=== PATIENT | male | born 1985 | race American Indian/Alaskan Native ===

== ENCOUNTER 2017-02-02 21:12 | Emergency (ER) | payer SELFPAY ==
[2017-02-02] MEDS ORDERED: TYLENOL PO ONE (22:56)
--- NOTE | 2017-02-02 23:59 | XRay Report ---
FINAL REPORT EXAM: XR HAND 2V RT HISTORY: righ hand injury TECHNIQUE: Right hand two views 3 images PRIORS: None. FINDINGS: Bone mineralization appears within normal limits. No acute fracture or subluxation is identified. No gross abnormality is seen in the soft tissues. IMPRESSION: 1. No acute fracture is identified.If symptoms persist, consider repeat study in 10-14 days to assess for a currently radiographically occult fracture.
[2017-02-03] MEDS ORDERED: MOTRIN PO ONE (02:32)
--- NOTE | 2017-02-03 02:40 | Emergency Department Report ---
ED Upper Extremity Inj HPI - General Chief Complaint: Extremity Injury, Upper Stated Complaint: RT WRIST PAIN W/LUMP Time Seen by Provider: 02/03/17 02:06 Source: patient Mode of arrival: Ambulatory Limitations: No Limitations - History of Present Illness Initial Comments: This is a 32-year-old male that presents to the ED complaining of right hand pain status post moving boxes 2 days ago. Patient stated has a moving boxes 2 days ago and after moving boxes and that night feeling pain that is aching with a level of a 10 out of 10. Patient denies any trauma to area. Denies any numbness, tingling, joint swelling, joint redness, decreased range of motion, fall, chest pain, shortness of breath, stiff neck, nausea or vomiting. Patient denies any allergies. Denies Past medical history. MD Complaint: Injury to:: left, hand -: Gradual, days(s) (2) Other Extremity Injury: Hand: Right Other Injuries: none Place: home Severity scale (0 -10): 10 Improves With: none Worsens With: none Associated Symptoms: denies other symptoms. denies: weakness, numbness, neck pain, suspects foreign body, nausea/vomiting, heard/felt popping sensat - Related Data Previous Rx's Medication Instructions Recorded Last Taken Type Cyclobenzaprine [Flexeril] 10 mg PO TID PRN #15 tablet 06/01/16 Unknown Rx Ibuprofen [Motrin 800 MG tab] 800 mg PO Q8HR PRN #25 tablet 06/01/16 Unknown Rx Ibuprofen [Motrin 600 MG tab] 600 mg PO Q8H PRN #20 tablet 02/03/17 Unknown Rx Allergies Allergy/AdvReac Type Severity Reaction Status Date / Time No Known Allergies Allergy Unverified 06/01/16 00:39 ED Review of Systems ROS: Stated complaint: RT WRIST PAIN W/LUMP Other details as noted in HPI Constitutional: denies: chills, fever Eyes: denies: eye pain, eye discharge, vision change ENT: denies: ear pain, throat pain Respiratory: denies: cough, shortness of breath, wheezing Cardiovascular: denies: chest pain, palpitations Endocrine: no symptoms reported Gastrointestinal: denies: abdominal pain, nausea, diarrhea Genitourinary: denies: urgency, dysuria Musculoskeletal: denies: back pain, joint swelling, arthralgia Skin: denies: rash, lesions Neurological: denies: headache, weakness, paresthesias Psychiatric: denies: anxiety, depression Hematological/Lymphatic: denies: easy bleeding, easy bruising ED Past Medical Hx - Past Medical History Previous Medical History?: No - Surgical History Past Surgical History?: No - Social History Smoking Status: Former Smoker Substance Use Type: Alcohol, Marijuana - Medications Home Medications: Home Medications Medication Instructions Recorded Confirmed Last Taken Type Cyclobenzaprine [Flexeril] 10 mg PO TID PRN #15 tablet 06/01/16 Unknown Rx Ibuprofen [Motrin 800 MG tab] 800 mg PO Q8HR PRN #25 tablet 06/01/16 Unknown Rx Ibuprofen [Motrin 600 MG tab] 600 mg PO Q8H PRN #20 tablet 02/03/17 Unknown Rx ED Physical Exam - General Limitations: No Limitations General appearance: alert, in no apparent distress - Head Head exam: Present: atraumatic, normocephalic, normal inspection - Eye Eye exam: Present: normal appearance, PERRL, EOMI. Absent: scleral icterus, conjunctival injection, nystagmus, periorbital swelling, periorbital tenderness Pupils: Present: normal accommodation - ENT ENT exam: Present: normal exam, normal orophraynx, mucous membranes moist, TM's normal bilaterally, normal external ear exam - Neck Neck exam: Present: normal inspection, full ROM. Absent: tenderness, meningismus, lymphadenopathy, thyromegaly - Respiratory Respiratory exam: Present: normal lung sounds bilaterally. Absent: respiratory distress, wheezes, rales, rhonchi, stridor, chest wall tenderness, accessory muscle use, decreased breath sounds, prolonged expiratory - Cardiovascular Cardiovascular Exam: Present: regular rate, normal rhythm, normal heart sounds. Absent: bradycardia, tachycardia, irregular rhythm, systolic murmur, diastolic murmur, rubs, gallop - GI/Abdominal GI/Abdominal exam: Present: soft, normal bowel sounds. Absent: distended, tenderness, guarding, rebound, rigid - Rectal Rectal exam: Present: deferred - Extremities Exam Extremities exam: Present: normal inspection, full ROM, normal capillary refill. Absent: tenderness, pedal edema, joint swelling, calf tenderness - Expanded Upper Extremity Exam Right General: Present: normal inspection Shoulder Exam: Present: normal inspection, full ROM. Absent: tenderness, swelling, abrasion, laceration, ecchymosis, deformity, crepidus, dislocation, erythema, tenderness over AC joint Upper Arm exam: Present: normal inspection, full ROM. Absent: tenderness, swelling, abrasion, laceration, ecchymosis, deformity, crepidus, dislocation, erythema Elbow exam: Present: normal inspection, full ROM. Absent: tenderness, swelling , abrasion, laceration, ecchymosis, deformity, crepidus, dislocation, erythema, effusion, pain w/ pronation/supination, tenderness over radial head Forearm Wrist exam: Present: normal inspection, full ROM. Absent: tenderness, swelling, abrasion, laceration, ecchymosis, deformity, crepidus, dislocation, erythema, tenderness over anatomical snuff box, pain with axial thumb loading Hand Wrist exam: Present: normal inspection, full ROM. Absent: tenderness, swelling, abrasion, laceration, ecchymosis, deformity, crepidus, dislocation, erythema, amputation, nail avulsion, subungual hematoma Neuro motor exam: Present: wrist extension intact, thumb opposition intact, thumb IP flexion intact, thumb adduction intact, fingers 2-5 abduction intact Neurosensory exam: Present: 2-point discrimination, radial nerve intact, ulnar nerve intact, median nerve intact Vascular: Present: vascular compromise, normal capillary refill, radial pulse, brachial pulse, ulnar pulse - Back Exam Back exam: Present: normal inspection, full ROM. Absent: tenderness, CVA tenderness (R), CVA tenderness (L), muscle spasm, paraspinal tenderness, vertebral tenderness, rash noted - Neurological Exam Neurological exam: Present: alert, oriented X3, CN II-XII intact, normal gait, reflexes normal - Psychiatric Psychiatric exam: Present: normal affect, normal mood - Skin Skin exam: Present: warm, dry, intact, normal color. Absent: rash ED Course Vital Signs 02/02/17 02/02/17 22:50 23:02 Temperature 98.9 F Pulse Rate 59 L Respiratory 18 Rate Blood Pressure 123/82 O2 Sat by Pulse 99 Oximetry - Reevaluation(s) Reevaluation #1: 02/03/17 02:49 Patient is able to talk in full sentence without signs of distress noted. ED Medical Decision Making - Medical Decision Making ED course; this is a 31-year-old male that presents with right hand strain. 1- patient was examined by me. X-ray has been obtained a right hand. Dictated by . Impression; no acute fracture is identified. If symptoms persist , consider repeat study attempts 14 days to assess for currently radiographically occult fracture. I notified the patient of x-ray findings the patient stated he will follow up with orthopedic doctor in 3-5 days with further evaluation of possible hidden fracture 2- patient received ibuprofen in the ED. 3- wrist immobilizer has been applied and patient was instructed to follow-up with orthopedic doctor in 5 days or if symptoms such as numbness, tingling, pale , cool to touch, fever, chills, chest pain or shortness of breath returns and emergency service was possible. 4- at time time of discharge, the patient does not seem toxic or ill in appearance. No acute signs of distress noted. Patient agrees to discharge treatment plan of care. No further questions noted by the patient. Critical care attestation.: If time is entered above; I have spent that time in minutes in the direct care of this critically ill patient, excluding procedure time. ED Disposition Clinical Impression: Hand strain Qualifiers: Encounter type: initial encounter Laterality: right Qualified Code(s): S66.911A - Strain of unspecified muscle, fascia and tendon at wrist and hand level, right hand, initial encounter Disposition: - TO HOME OR SELFCARE Is pt being admited?: No Does the pt Need Aspirin: No Condition: Stable Instructions: Ibuprofen (By mouth), Hand Sprain (ED) Additional Instructions: follow-up with orthopedic doctor in 3-5 days or if symptoms such as numbness, tingling, pale, cool to touch, fever, chills, chest pain or shortness of breath returns and emergency service was possible. Take ibuprofen as prescribed as needed for pain. Prescriptions: Ibuprofen [Motrin 600 MG tab] 600 mg PO Q8H PRN #20 tablet PRN Reason: Pain Referrals: PRIMARY CAREMD [Primary Care Provider] - 3-5 Days MASTER REN MD [Staff Physician] - 3-5 Days [facility] [Outside] - 3-5 Days [facility] [Outside] - 3-5 Days Forms: Work/School Release Form(ED)
[2017-02-03 03:03] VITALS: BP 121/76
== END 2017-02-03 03:07 | disposition home or self-care (01) ==
LOC: ED 21:12
DX: S66.911A Strain of unspecified muscle, fascia and tendon at wrist and hand level, right hand, initial encounter (principal); F12.10 Cannabis abuse, uncomplicated; Z87.891 Personal history of nicotine dependence; X50.0XXA Overexertion from strenuous movement or load, initial encounter; Y93.89 Activity, other specified; Y92.89 Other specified places as the place of occurrence of the external cause; Y99.8 Other external cause status
CPT/HCPCS: 99283

== ENCOUNTER 2018-02-12 09:34 | Emergency (ER) | payer OTHER ==
[2018-02-12 09:53] VITALS: BP 119/63
[2018-02-12] MEDS ORDERED: MOTRIN PO ONE (10:19)
--- NOTE | 2018-02-12 10:22 | Emergency Department Report ---
- General Chief Complaint: Upper Respiratory Infection Stated Complaint: CHEST/HEAD PAIN/NUMBNESS Time Seen by Provider: 02/12/18 10:14 Source: patient Mode of arrival: Ambulatory Limitations: No Limitations - History of Present Illness MD Complaint: cough, sore throat, nasal congestion Severity: moderate Quality: sharp Improves With: NSAID Associated Symptoms: myalgias - Related Data Previous Rx's Medication Instructions Recorded Last Taken Type Cyclobenzaprine [Flexeril] 10 mg PO TID PRN #15 tablet 06/01/16 Unknown Rx Ibuprofen [Motrin 800 MG tab] 800 mg PO Q8HR PRN #25 tablet 06/01/16 Unknown Rx Ibuprofen [Motrin 600 MG tab] 600 mg PO Q8H PRN #20 tablet 02/03/17 Unknown Rx Allergies Allergy/AdvReac Type Severity Reaction Status Date / Time No Known Allergies Allergy Unverified 06/01/16 00:39 ED Review of Systems ROS: Stated complaint: CHEST/HEAD PAIN/NUMBNESS Other details as noted in HPI Comment: All other systems reviewed and negative Constitutional: denies: chills, fever Respiratory: denies: cough, orthopnea, shortness of breath, SOB with exertion, SOB at rest, wheezing Cardiovascular: denies: chest pain, palpitations Gastrointestinal: denies: abdominal pain, nausea, vomiting, diarrhea, constipation, hematemesis Genitourinary: denies: urgency, dysuria ED Past Medical Hx - Past Medical History Previous Medical History?: No - Surgical History Past Surgical History?: No - Social History Smoking Status: Never Smoker Substance Use Type: None - Medications Home Medications: Home Medications Medication Instructions Recorded Confirmed Last Taken Type Cyclobenzaprine [Flexeril] 10 mg PO TID PRN #15 tablet 06/01/16 Unknown Rx Ibuprofen [Motrin 800 MG tab] 800 mg PO Q8HR PRN #25 tablet 06/01/16 Unknown Rx Ibuprofen [Motrin 600 MG tab] 600 mg PO Q8H PRN #20 tablet 02/03/17 Unknown Rx ED Physical Exam - General Limitations: No Limitations General appearance: alert, in no apparent distress - Head Head exam: Present: atraumatic, normocephalic, normal inspection - Eye Eye exam: Present: normal appearance, PERRL - ENT ENT exam: Present: normal exam, normal orophraynx, mucous membranes moist - Neck Neck exam: Present: normal inspection, full ROM. Absent: tenderness, meningismus, lymphadenopathy - Respiratory Respiratory exam: Present: normal lung sounds bilaterally - Cardiovascular Cardiovascular Exam: Present: regular rate, normal rhythm, normal heart sounds - GI/Abdominal GI/Abdominal exam: Present: soft, normal bowel sounds. Absent: distended, tenderness, guarding, rebound, rigid, organomegaly, mass, bruit, pulsatile mass - Extremities Exam Extremities exam: Present: normal inspection, full ROM, normal capillary refill - Neurological Exam Neurological exam: Present: alert, oriented X3, CN II-XII intact, normal gait - Skin Skin exam: Present: warm, intact, normal color ED Course Vital Signs 02/12/18 09:50 Temperature 98.5 F Pulse Rate 63 Respiratory 16 Rate Blood Pressure 119/63 O2 Sat by Pulse 98 Oximetry Critical care attestation.: If time is entered above; I have spent that time in minutes in the direct care of this critically ill patient, excluding procedure time. ED Disposition Clinical Impression: URI (upper respiratory infection), Viral syndrome Disposition: - TO HOME OR SELFCARE Is pt being admited?: No Condition: Stable Instructions: Viral Syndrome (ED)
== END 2018-02-12 11:35 | disposition home or self-care (01) ==
LOC: ED 09:34
DX: J06.9 Acute upper respiratory infection, unspecified (principal); B34.9 Viral infection, unspecified
CPT/HCPCS: 87116; 87430; 99282